=== PATIENT | male | born 1960 | race Caucasian/White ===

== ENCOUNTER → 2024-01-29 09:34 | Outpatient (CLI) | payer OTHER, SELFPAY ==
--- NOTE | 2024-01-29 09:37 | DI.RAD.S_ITS ---
PROCEDURE: Chest Fluoroscopy Evaluation COMPARISON: None. INDICATIONS: DISORDER OF DIAPHRAGM FINDINGS: Diaphragm evaluated under fluoroscopy at regular reaming interval loss, inspiration, expiration, and sniff test. Left diaphragm a mid within normal limits. Right diaphragm did not move, during breathing exercise. IMPRESSION: Radiographic evidence for right hemidiaphragm paralysis. Dictated by: Reid Cho RR Interpreted: Madhu Mohan MD on 01/29/2024 at 11:56 Approved by: Madhu Mohan M.D. on 01/29/2024 at 17:27
== END ==
LOC: RAD 09:36
DX: J98.6 Disorders of diaphragm (principal)
CPT/HCPCS: 76000; 76001

== ENCOUNTER → 2024-05-04 | Outpatient (CLI) | payer OTHER, SELFPAY ==
--- NOTE | 2024-05-05 17:35 | DI.NM.S_ITS ---
DATE OF SERVICE: 05/05/2024 PROCEDURE: Exercise stress test. INDICATIONS: Paroxysmal AFib. CARDIAC STRESS: Patient underwent exercise stress test under the supervision of an attending staff using standard Clifford protocol. He walked on Clifford protocol for 6 minutes and 43 seconds, achieved maximum heart rate 152, which was 97% of target heart rate. Resting blood pressure 130/95 and peak blood pressure 200/100 mmHg. Baseline rhythm sinus. During the stress, no convincing ischemic changes seen. Rare PVCs. 7 METs of workload. GLENYS positive 14%. No chest pain. Had some shortness of breath. CONCLUSION: Exercise stress test is negative for inducible ischemia. Mildly hypertensive response. Diminished exercise tolerance. No significant arrhythmias. No anginal symptoms. Normal recovery. Overall, low-risk exercise stress test. Misha Dowd - MILO/loida/KRYSTEN doc#: [id number]/job#: [id number] dd: 05/05/2024 17:04:00 dt: 05/05/2024 17:20:00 DICTATING /COPIES TO: Daria Thomas MD COPIES MNE: EVON;
== END ==
PROVIDERS: Referring Provider Internal Medicine; Visit Provider Internal Medicine
DX: I50.22 Chronic systolic (congestive) heart failure (principal); I48.0 Paroxysmal atrial fibrillation
CPT/HCPCS: 93017

== ENCOUNTER 2024-07-11 19:34 | Emergency (ER) | payer OTHER, SELFPAY ==
[2024-07-11] VITALS (11 sets, daily range): BP systolic 155–183; BP diastolic 88–108; PULSE 52–58; RESP 17–24; TEMP 36.3; O2SAT 93–96; BMI 39.4
--- NOTE | 2024-07-11 19:46 | DI.RAD.S_ITS ---
PROCEDURE: XR CHEST 1V INDICATIONS: chest pain TECHNIQUE: One view of the chest was acquired. COMPARISON: None. FINDINGS: Surgical changes and devices: None. Lungs and pleura: Lungs are clear. No pleural effusions or pneumothorax. Mediastinum: Mediastinal contours appear normal. Heart size is normal. Bones and chest wall: No suspicious bony lesions. Overlying soft tissues appear unremarkable. IMPRESSION: No acute pulmonary process. Dictated by: Angélica Perez M.D. on 07/11/2024 at 20:13 Approved by: Angélica Perez M.D. on 07/11/2024 at 20:13
--- NOTE | 2024-07-11 19:49 | EKG_ITS ---
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
[2024-07-11] MEDS: ASPIRIN 81 MG CHEW TAB 324 MG PO (19:54)
[2024-07-11 20:01] LABS: Add Manual Diff / Slide Review NO; Basophils Absolute Auto 0 /uL (0-100); Basophils Percent Auto 0.7 % (0-2); Eosinophils Absolute Auto 200 /uL (0-450); Eosinophils Percent Auto 2.8 % (2-4); Hematocrit 43.9 % (41-53); Lymphocytes Absolute Auto 1700 /uL (1100-4500); Lymphocytes Percent Auto 25.9 % (25-40); Mean Corpuscular HGB Conc 34.3 % (30-36); Mean Corpuscular Hemoglobin 30.7 PG (26-34); Mean Corpuscular Volume 89.6 fL (80-100); Monocytes Absolute Auto 700 /uL (0-900); Monocytes Percent Auto 10.6 % (3-14); Neutrophils Absolute Auto 4000 /uL (1500-7000); Platelet Count 175 X10^3/uL (150-400); White Blood Cell Count 6.6 X10^3/uL (4.5-11.0)
[2024-07-11 20:07] LABS: Prothrombin Time 11.2 SECONDS (9.4-12.5)
[2024-07-11 20:09] LABS: Alanine Aminotransferase 33 IU/L (<50); Albumin Globulin Ratio 1.8 (1.0-2.8); Alkaline Phosphatase 75 U/L (38-126); Aspartate Aminotransferase 36 IU/L (17-59); BUN Creatinine Ratio 15.7 (6-22); Bilirubin Total 0.7 mg/dL (0.2-1.3); Blood Urea Nitrogen 18 mg/dL (9-20); Calcium 9.6 mg/dL (8.4-10.2); Carbon Dioxide 29 mmol/L (22-32); Chloride 102 mmol/L (98-107); Creatine Kinase 185 U/L (55-170); Estimated Glomerular Filt Rate > 60 mL/min (>60); Globulin 2.8 g/dL (1.7-4.1); Glucose 101 mg/dL (80-110); HEMOLYSIS < 15 (0-50); Lipase 197 U/L (23-300); PTT Partial Thromboplastin Tim 39 SECONDS (25.1-36.5); Potassium 4.1 mmol/L (3.4-5.1); Sodium 139 mmol/L (137-145); Total Protein 7.8 g/dL (6.3-8.2)
[2024-07-11 20:21] LABS: NT-proBNP (BNP-Adult 18+) 46 pg/mL (<125); Troponin I < 0.012 ng/mL (0.01-0.034)
--- NOTE | 2024-07-11 22:16 | EKG_ITS ---
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
[2024-07-11 22:28] LABS: Troponin I < 0.012 ng/mL (0.01-0.034)
--- NOTE | 2024-07-11 22:46 | ED.CHESTPAIN ---
HPI - Chest Pain General Chief Complaint: Chest Pain Stated Complaint: left side chest px Time Seen by Provider: 07/11/24 22:46 Source: patient, RN notes reviewed and old records reviewed Mode of arrival: Ambulatory Limitations: no limitations History of Present Illness HPI narrative: 64-year-old male history of systolic heart failure and atrial fibrillation, hypertension, dyslipidemia on Eliquis who presents with complaint of left-sided chest discomfort he states it has been going on since November 25. He has had episodes of dizziness and feeling short of breath. He has been following with cardiology has been told he has systolic heart failure and atrial fibrillation. Sounds like he had a cardioversion with Cardiology in his supposed to have an ablation in 4 days on 07/15/2024. Patient states today he felt weird he felt like his heart rate was low he notes that he typically run 70s to 80s. He has not had any syncope he has felt a little lightheaded, he states he has had some chest pain on the left side but he states this has been on and off in the past. He states it has not really worse with exertion nothing seems to make it better. He relates it to in his heart rate is low. He was not been diaphoretic. No fevers or chills. States his hand and feed has been felt more swollen in the mornings for the past several days. He denies any nausea or vomiting. Denies any issues with bowel movements. States he urinates frequently but relates that to taking furosemide. He is on Eliquis, rosuvastatin, losartan, carvedilol, potassium and Lasix. He notes his carvedilol was increased from 6.25 mg b.i.d. to 12.5 mg b.i.d. about 2 weeks ago because his blood pressure has been rising like crazy in the last 2 weeks. Patient states he was never had any other cardiac interventions other than cardioversion. He has a prior colectomy for diverticulitis. Does note had other family members who have had atherosclerosis and had angioplasty. 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 Related Data Home Medications Medication Instructions Recorded Confirmed apixaban 5 mg tablet (Eliquis) 5 mg PO BID 07/11/24 07/11/24 carvedilol 12.5 mg tablet 12.5 mg PO BID 07/11/24 07/11/24 furosemide 40 mg tablet 40 mg PO DAILY 07/11/24 07/11/24 losartan 50 mg tablet 100 mg PO DAILY 07/11/24 07/11/24 meclizine 25 mg tablet PO PRN Back Pain 07/11/24 nitroglycerin 0.4 mg sublingual 0.4 mg sublingual Q5-15M PRN Chest 07/11/24 07/11/24 tablet Pain potassium chloride 10 mEq 10 meq PO DAILY 07/11/24 07/11/24 tablet,extended release rosuvastatin 20 mg tablet 20 mg PO DAILY 07/11/24 07/11/24 Allergies Allergy/AdvReac Type Severity Reaction Status Date / Time No Known Drug Allergies Allergy Verified 07/11/24 19:37 Review of Systems Review of Systems ROS Unobtainable: All systems reviewed & are unremarkable except as noted in HPI and below Patient History Social History Smoking Status: Former smoker Smoking Status: Former smoker tobacco type: cigarettes Exam Narrative Exam Narrative: GENERAL: Alert and oriented x three, male in mild distress HEENT: Head normocephalic, atraumatic, EOMI, pupils reactive, face symmetric, moist mucous membranes NECK: Supple, full range of motion CARDIOVASCULAR: Regular rate and rhythm without murmurs, rubs or gallops. No JVD. No edema bilateral upper or lower extremities. RESPIRATORY: Breath sounds equal bilaterally, no wheezes rales or rhonchi. ABDOMEN: Soft, nontender. Normoactive bowel sounds all 4 quadrants. No guarding or rebound, rigidity, no mass : No CVA tenderness EXTREMITIES: Normal range of motion, no clubbing or edema. Neurovascularly intact NEUROLOGICAL: Cranial nerves II through XII grossly intact. Moving all extremities SKIN: Warm, dry, no petechiae, no rashes or lesions. Initial Vital Signs Initial Vital Signs: Vital Signs Temperature 97.3 F L 07/11/24 19:38 Pulse Rate 55 L 07/11/24 19:38 Respiratory Rate 18 07/11/24 19:38 Blood Pressure 183/108 H 07/11/24 19:38 Pulse Oximetry 96 07/11/24 19:38 Oxygen Delivery Method Room Air 07/11/24 19:38 Course Orders Ordered: ED Orders 07/11/24 19:46 XR chest 1V Stat EKG-12 Lead Stat 07/11/24 19:52 Complete Blood Count AUTO DIFF Stat Comprehensive Metabolic Panel Stat Lipase Stat Magnesium Stat NT-proBNP (BNP-Adult 18+) Stat PTT Partial Thromboplastin Jonnathan Stat Prothrombin Time INR Stat Troponin & CK Cardiac Panel Stat 07/11/24 21:55 Trop I [Troponin I] Stat Discontinued Medications Aspirin (Aspirin 81 Mg Chew Tab) 324 mg PO NOW ONE Stop: 07/11/24 19:47 Last Admin: 07/11/24 19:54 Dose: 324 mg Documented By: [facility] Vital Signs Vital signs: Vital Signs - 8 hr 07/11/24 21:00 07/11/24 21:00 07/11/24 21:30 Pulse Rate 57 L 58 L Respiratory Rate 17 18 Blood Pressure 156/95 H Pulse Oximetry 96 94 07/11/24 21:30 07/11/24 22:00 07/11/24 22:00 Pulse Rate 52 L Respiratory Rate 18 Blood Pressure 155/94 H 177/93 H Pulse Oximetry 93 07/11/24 22:30 07/11/24 22:30 07/11/24 23:00 Pulse Rate 55 L 56 L Respiratory Rate 17 18 Blood Pressure 172/91 H Pulse Oximetry 95 96 07/11/24 23:00 Pulse Rate Respiratory Rate Blood Pressure 179/101 H Pulse Oximetry MDM - Chest Pain Lab Data 07/11/24 19:52 07/11/24 19:52 Labs: Lab Results 07/11/24 07/11/24 Range/Units 19:52 21:55 WBC 6.6 (4.5-11.0) X10^3/uL RBC 4.90 (4.5-5.9) X10^6/uL Hgb 15.0 (13.5-17.5) g/dL Hct 43.9 (41-53) % MCV 89.6 (80-100) fL MCH 30.7 (26-34) PG MCHC 34.3 (30-36) % RDW 13.0 (11.6-14.8) % Plt Count 175 (150-400) X10^3/uL Neut % (Auto) 60.0 (50-75) % Lymph % (Auto) 25.9 (25-40) % [place] % (Auto) 10.6 (3-14) % Eos % (Auto) 2.8 (2-4) % Baso % (Auto) 0.7 (0-2) % Neut # (Auto) 4000 (3269-5876) /uL Lymph # (Auto) 1700 (1316-6561) /uL [place] # (Auto) 700 (0-900) /uL Eos # (Auto) 200 (0-450) /uL Baso # (Auto) 0 (0-100) /uL PT 11.2 (9.4-12.5) SECONDS INR 1.0 (0.9-1.3) APTT 39 H (25.1-36.5) SECONDS Sodium 139 (137-145) mmol/L Potassium 4.1 (3.4-5.1) mmol/L Chloride 102 (98-107) mmol/L Carbon Dioxide 29 (22-32) mmol/L BUN 18 (9-20) mg/dL Creatinine 1.15 (0.66-1.25) mg/dL Estimated GFR > 60 (>60) mL/min BUN/Creatinine Ratio 15.7 (6-22) Glucose 101 (80-110) mg/dL Calcium 9.6 (8.4-10.2) mg/dL Magnesium 2.0 (1.6-2.3) mg/dL Total Bilirubin 0.7 (0.2-1.3) mg/dL AST 36 (17-59) IU/L ALT 33 (<50) IU/L Alkaline Phosphatase 75 (38-126) U/L Total Creatine Kinase 185 H (55-170) U/L Troponin I < 0.012 < 0.012 (0.01-0.034) ng/mL NT-Pro-B Natriuret Pep 46 (<125) pg/mL Total Protein 7.8 (6.3-8.2) g/dL Albumin 5.0 (3.5-5.0) g/dL Globulin 2.8 (1.7-4.1) g/dL Albumin/Globulin Ratio 1.8 (1.0-2.8) Lipase 197 (23-300) U/L ECG Data Attestation: I personally reviewed and interpreted this ECG as follows: Prior ECG tracings: available for review Interpretation: Junctional rhythm rate of 56, QRS of 108 QTC of 430 nonspecific change. Patient was prior from 12/21/2021 has some nonspecific change. EKG number shows sinus bradycardia rate of 54, [place] 168 QRS of 114 QTC of 443 nonspecific change. MDM Narrative Medical decision making narrative: Labs show normal white count, hemoglobin and platelets, INR is 1, electrolytes are appropriate potassium 4.1 Mag is 2, creatinine 1.15 no priors for comparison glucose is 101 total CK is 185, troponins less than 0.012 with a repeat troponin less than 0.012 and a lipase of 197. BNP of 46. Otherwise normal LFTs. Chest x-ray shows no acute pulmonary process. EKG shows regular junctional rhythm possibly sinus and repeat shows sinus bradycardia with nonspecific change. Patient had exercise stress test on 05/05/2024 for paroxysmal atrial fibrillation patient had no convincing ischemic changes with rare PVCs had some shortness of breath was negative for inducible ischemia, mildly hypertensive response diminished exercise tolerance no significant arrhythmias no anginal symptoms normal recovery overall low risk exercise test. 64-year-old male known history of heart failure, atrial fibrillation with plan for ablation on 07/15/2024. Patient symptoms since November has been following regularly with Cardiology has felt a little dizzy, short of breath and chest pain states this has been on and off over the last several months he relates his symptoms today to his heart rate being low and notes he was typically 70s to 80s to his heart rate and notes that his carvedilol was recently increased. He had cardiac workup with no acute EKG changes, 2- troponins no other clear cause found for his symptoms. He notes no other high-risk factors such as long distance travel, embolic, ect. He notes he was felt a little bit more dizzy he was not been hypotensive but has been a little bradycardic he notes his carvedilol was increased recently discussed he feels comfortable with turn home has follow up in 4 days for ablation discussed could decrease his carvedilol if he was feeling very lightheaded with a heart rate in the 50s he has monitors to check his heart rate as well as blood pressure at so encouraged him to do this strict return precautions. Patient states he would like to return home. Discharge Plan Departure Patient Disposition: Home Clinical Impression: Chest pain Instructions: DI for Chest Pain Activity Restrictions/Additional Instructions: Follow-up with your commutator assembler on the I hope you are ablation goes well. Continue your home medications as prescribed if you are noting your heart rate is quite low and your feeling lightheaded you can decrease your carvedilol back to 6.25 mg b.i.d. but please call and let your commutator assembler know that you are making this change. Please return if you have new or worsening symptoms, new chest pain, increasing shortness of breath, increasing swelling, lightheadedness or passing out, persistent vomiting, diaphoresis or sweatiness or other new or concerning changes. Prescriptions: No Action carvedilol 12.5 mg tablet 12.5 mg PO BID rosuvastatin 20 mg tablet 20 mg PO DAILY furosemide 40 mg tablet 40 mg PO DAILY Eliquis 5 mg tablet 5 mg PO BID potassium chloride 10 mEq tablet extended release 10 meq PO DAILY losartan 50 mg tablet 100 mg PO DAILY nitroglycerin 0.4 mg Tablet, Sublingual 0.4 mg SUBLINGUAL Q5-15M PRN (Reason: Chest Pain) Rx Instructions: do not exceed 3 doses per episode meclizine 25 mg Tablet PO PRN (Reason: Back Pain) Referrals: Angela White ARNP [Primary Care Provider] - Amor Mohan MD [Physician] - Stand Alone Forms: Patient Portal/API/Survey
== END 2024-07-11 23:28 | disposition home or self-care (01) ==
PROVIDERS: Emergency Provider Emergency Medicine
DX: R07.9 Chest pain, unspecified (principal); I48.0 Paroxysmal atrial fibrillation; I50.9 Heart failure, unspecified; I11.0 Hypertensive heart disease with heart failure; Z79.01 Long term (current) use of anticoagulants; Z87.891 Personal history of nicotine dependence
CPT/HCPCS: 36415; 71045; 80053; 82550; 83690; 83735; 83880; 84484; 85025; 85610; 85730; 93005; 93010; 99284

== ENCOUNTER 2025-01-19 10:05 | Emergency (ER) | payer OTHER, SELFPAY ==
[2025-01-19] VITALS (15 sets, daily range): BP systolic 139–209; BP diastolic 85–121; PULSE 56–70; RESP 14–22; TEMP 36.8; O2SAT 92–96; BMI 38.9
--- NOTE | 2025-01-19 10:16 | DI.RAD.S_ITS ---
PROCEDURE: XR CHEST 1V INDICATIONS: Chest Pain TECHNIQUE: One view of the chest was acquired. COMPARISON: [facility], CR, XR CHEST 2 VIEWS, 08/21/2024, 16:35. [facility], CR, XR CHEST 1V, 07/11/2024, 19:49. FINDINGS: Surgical changes and devices: None. Lungs and pleura: Chronic elevation of the right hemidiaphragm. No acute consolidation. No pleural effusions or pneumothorax. Mediastinum: Mediastinal contours appear normal. Heart size is normal. Bones and chest wall: No suspicious bony lesions. Overlying soft tissues appear unremarkable. IMPRESSION: No acute cardiopulmonary abnormality is seen. Approved by: Ruel Jiménez M.D. on 01/19/2025 at 10:26
--- NOTE | 2025-01-19 10:18 | EKG_ITS ---
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
[2025-01-19 10:41] LABS: Add Manual Diff / Slide Review NO; Hematocrit 42.3 % (41-53); Hemoglobin 14.6 g/dL (13.5-17.5); Lymphocytes Absolute Auto 1300 /uL (1100-4500); Mean Corpuscular HGB Conc 34.6 % (30-36); Mean Corpuscular Hemoglobin 30.6 PG (26-34); Mean Corpuscular Volume 88.4 fL (80-100); Platelet Count 179 X10^3/uL (150-400)
[2025-01-19 10:46] LABS: INR 1.0 (0.9-1.3); Prothrombin Time 11.0 SECONDS (9.4-12.5)
[2025-01-19 10:48] LABS: PTT Partial Thromboplastin Tim 32 SECONDS (25.1-36.5)
--- NOTE | 2025-01-19 10:48 | DI.CT.S_ITS ---
PROCEDURE: CT HEAD/BRAIN WO CON INDICATIONS: Dizzy/headache TECHNIQUE: Noncontrast 4.5 mm thick angled axial sections acquired from the foramen magnum to the vertex, with coronal and sagittal reformats. For radiation dose reduction, the following was used: automated exposure control, adjustment of mA and/or kV according to patient size. COMPARISON: None. FINDINGS: Image quality: Diagnostic. CSF spaces: Basal cisterns are patent. No extra-axial fluid collections. Ventricles are normal in size and shape. Brain: No midline shift. No intracranial mass effect or hemorrhage. Carlson- white matter interface is normal. Mild diffuse cerebral cortical volume loss and slight, symmetric periventricular white matter hypodensity. Skull and face: Calvarium and visualized facial bones are intact, without suspicious lesions. Sinuses: Visualized sinuses and mastoids are clear. IMPRESSION: No CT evidence of acute intracranial process. Dictated by: Etta Downs M.D. on 01/19/2025 at 11:28 Approved by: Etta Downs M.D. on 01/19/2025 at 11:29
[2025-01-19 10:50] LABS: Alanine Aminotransferase 22 IU/L (<50); Albumin 4.8 g/dL (3.5-5.0); Albumin Globulin Ratio 1.8 (1.0-2.8); Alkaline Phosphatase 68 U/L (38-126); Blood Urea Nitrogen 15 mg/dL (9-20); Calcium 9.1 mg/dL (8.4-10.2); Carbon Dioxide 26 mmol/L (22-32); Chloride 103 mmol/L (98-107); Creatine Kinase 249 U/L (55-170); Estimated Glomerular Filt Rate > 60 mL/min (>60); Globulin 2.7 g/dL (1.7-4.1); Glucose 105 mg/dL (70-99); HEMOLYSIS < 15 (0-50); Lipase 131 U/L (23-300); Magnesium 2.1 mg/dL (1.6-2.3); Potassium 4.1 mmol/L (3.4-5.1); Sodium 139 mmol/L (137-145); Total Protein 7.5 g/dL (6.3-8.2)
--- NOTE | 2025-01-19 10:50 | ED.DIZZY ---
HPI - Dizziness General Chief Complaint: Dizziness Stated Complaint: Dizzy , cardiac issues , high blood pressure Time Seen by Provider: 01/19/25 10:29 Source: patient Mode of arrival: Wheelchair History of Present Illness HPI Narrative: Patient here for dizziness. Ongoing since November 2023 but worsening in the past couple of weeks. Patient does have history of hypertension hyperlipidemia atrial fibrillation congestive heart failure. He is on Eliquis carvedilol. Patient was then pulmonary rehab this morning and felt dizzy and blood pressure elevated and brought over here. Patient sees [facility] cardiology services. Denies any chest pain. Blood pressure noted. He has been compliant with his medications. Patient is seen here June 2024 for the same complaint and discharged home. Related Data Home Medications ?Medication ?Instructions ?Recorded ?Confirmed apixaban 5 mg tablet (Eliquis) 5 mg PO BID 07/11/24 12/22/24 carvedilol 12.5 mg tablet 12.5 mg PO BID 07/11/24 12/22/24 nitroglycerin 0.4 mg sublingual 0.4 mg sublingual Q5-15M PRN Chest 07/11/24 12/22/24 tablet Pain rosuvastatin 20 mg tablet 20 mg PO DAILY 07/11/24 12/22/24 albuterol sulfate 90 mcg/actuation 2 puff inhalation Q4-6H PRN 11/18/24 12/22/24 aerosol inhaler escitalopram oxalate 10 mg tablet 10 mg PO DAILY 11/18/24 12/22/24 sacubitril 97 mg-valsartan 103 mg 1 tab PO BID 11/18/24 12/22/24 tablet spironolactone 25 mg tablet 25 mg PO DAILY 11/18/24 12/22/24 Previous Rx's ?Medication ?Instructions ?Recorded fluticasone fur. 200 mcg-umeclid 1 inh inhalation DAILY #60 ea 12/22/24 62.5 mcg-vilant 25 mcg inhalat.powder (Trelegy Ellipta) Allergies Allergy/AdvReac Type Severity Reaction Status Date / Time amlodipine AdvReac Intermediate Swelling Verified 01/19/25 10:16 Review of Systems Review of Systems Narrative: GENERAL: Negative chills, fatigue, malaise, fever, sweats. HEENT: Negative sinus pain, ear pain, sore throat RESPIRATORY: Negative dyspnea, cough CARDIOVASCULAR: Negative chest pain, palpitations GASTROINTESTINAL: Negative vomiting, nausea, abdominal pain : Negative dysuria, frequency, hematuria MUSCULOSKELETAL: Negative muscle or bony pain SKIN: Negative rash, skin lesions NEUROLOGIC: Negative weakness, numbness, positive dizziness ROS Unobtainable: All systems reviewed & are unremarkable except as noted in HPI and below Patient History Social History Smoking Status: Unknown if ever smoked Smoking Status: Unknown if ever smoked tobacco type: cigarettes Exam Narrative Exam Narrative: GENERAL: in no distress, not toxic not dyspneic HEAD: Normocephalic. EYES: Pupils equal round ENT: Mucous membranes moist. NECK: Trachea midline. CARDIOVASCULAR: Regular rate and rhythm RESPIRATORY: Clear to auscultation. Breath sounds equal bilaterally. No wheezes, rales, or rhonchi. GASTROINTESTINAL: Abdomen soft, non-tender EXTREMITIES: No gross deformities. BACK: No flank tenderness. NEURO: AOx4. Clear speech, fast exam is negative. Currently not dizzy. 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 Elevate each leg without drift. Negative pronator drift. Fast exam is negative. SKIN: Warm and dry PSYCH: Not anxious, is cooperative Initial Vital Signs Initial Vital Signs: Vital Signs Temperature 98.2 F 01/19/25 10:06 Pulse Rate 70 01/19/25 10:06 Respiratory Rate 15 01/19/25 10:06 Blood Pressure 207/121 H 01/19/25 10:06 Pulse Oximetry 94 01/19/25 10:06 Oxygen Delivery Method Room Air 01/19/25 10:06 Course Orders Ordered: ED Orders 01/19/25 10:48 CT head/brain wo con Stat Discontinued Medications Labetalol HCl (Labetalol 20 Mg/4 Ml Syringe) 10 mg IV NOW ONE Stop: 01/19/25 12:19 Last Admin: 01/19/25 12:51 Dose: 10 mg Documented By: JHONNY Vital Signs Vital signs: Vital Signs - 8 hr 01/19/25 12:00 01/19/25 12:01 01/19/25 12:01 Pulse Rate 66 64 Respiratory Rate 20 20 Blood Pressure 182/113 H Pulse Oximetry 92 96 Oxygen Delivery Method 01/19/25 12:30 01/19/25 12:31 01/19/25 12:31 Pulse Rate 58 L 58 L Respiratory Rate 20 17 Blood Pressure 209/118 H Pulse Oximetry 96 95 Oxygen Delivery Method 01/19/25 12:51 01/19/25 12:52 01/19/25 12:52 Pulse Rate 58 L 57 L Respiratory Rate 15 Blood Pressure 195/112 H 195/112 H Pulse Oximetry 94 Oxygen Delivery Method 01/19/25 12:55 01/19/25 12:55 01/19/25 13:00 Pulse Rate 59 L Respiratory Rate 14 Blood Pressure 139/85 144/90 H Pulse Oximetry 96 Oxygen Delivery Method 01/19/25 13:00 01/19/25 13:15 01/19/25 13:15 Pulse Rate 56 L 57 L Respiratory Rate 22 21 Blood Pressure 145/92 H Pulse Oximetry 94 96 Oxygen Delivery Method Room Air 01/19/25 13:26 Pulse Rate 58 L Respiratory Rate Blood Pressure 145/92 H Pulse Oximetry Oxygen Delivery Method MDM - Dizziness Lab Data 01/19/25 10:30 01/19/25 10:30 Labs: Lab Results 01/19/25 Range/Units 10:30 WBC 5.8 (4.5-11.0) X10^3/uL RBC 4.78 (4.5-5.9) X10^6/uL Hgb 14.6 (13.5-17.5) g/dL Hct 42.3 (41-53) % MCV 88.4 (80-100) fL MCH 30.6 (26-34) PG MCHC 34.6 (30-36) % RDW 13.1 (11.6-14.8) % Plt Count 179 (150-400) X10^3/uL Neut % (Auto) 62.0 (50-75) % Lymph % (Auto) 23.0 L (25-40) % Ferry % (Auto) 11.9 (3-14) % Eos % (Auto) 2.6 (2-4) % Baso % (Auto) 0.5 (0-2) % Neut # (Auto) 3600 (8900-7034) /uL Lymph # (Auto) 1300 (0830-5109) /uL Ferry # (Auto) 700 (0-900) /uL Eos # (Auto) 200 (0-450) /uL Baso # (Auto) 0 (0-100) /uL PT 11.0 (9.4-12.5) SECONDS INR 1.0 (0.9-1.3) APTT 32 (25.1-36.5) SECONDS Sodium 139 (137-145) mmol/L Potassium 4.1 (3.4-5.1) mmol/L Chloride 103 (98-107) mmol/L Carbon Dioxide 26 (22-32) mmol/L BUN 15 (9-20) mg/dL Creatinine 1.01 (0.66-1.25) mg/dL Estimated GFR > 60 (>60) mL/min BUN/Creatinine Ratio 14.9 (6-22) Glucose 105 H (70-99) mg/dL Calcium 9.1 (8.4-10.2) mg/dL Magnesium 2.1 (1.6-2.3) mg/dL Total Bilirubin 0.6 (0.2-1.3) mg/dL AST 32 (17-59) IU/L ALT 22 (<50) IU/L Alkaline Phosphatase 68 (38-126) U/L Total Creatine Kinase 249 H (55-170) U/L Troponin I < 0.012 (0.01-0.034) ng/mL NT-Pro-B Natriuret Pep 30 (<125) pg/mL Total Protein 7.5 (6.3-8.2) g/dL Albumin 4.8 (3.5-5.0) g/dL Globulin 2.7 (1.7-4.1) g/dL Albumin/Globulin Ratio 1.8 (1.0-2.8) Lipase 131 (23-300) U/L Imaging Data Chest x-ray: Radiologist's Impression: [address] [address] XRay Report Signed Patient: Misha Dowd MR#: [id number] : 1960 Acct:[id number] Age/Sex: 64 / M Date of Service: 01/19/25 Loc: ED Accession Number: [id number] Procedure: XR chest 1V Ordering Provider: Dinh Sheldon MD PROCEDURE: XR CHEST 1V INDICATIONS: Chest Pain TECHNIQUE: One view of the chest was acquired. COMPARISON: [facility], , XR CHEST 2 VIEWS, 08/21/2024, 16:35. [facility], CR, XR CHEST 1V, 07/11/2024, 19:49. FINDINGS: Surgical changes and devices: None. Lungs and pleura: Chronic elevation of the right hemidiaphragm. No acute consolidation. No pleural effusions or pneumothorax. Mediastinum: Mediastinal contours appear normal. Heart size is normal. Bones and chest wall: No suspicious bony lesions. Overlying soft tissues appear unremarkable. IMPRESSION: No acute cardiopulmonary abnormality is seen. Approved by: Ruel Jiménez M.D. on 01/19/2025 at 10:26 CT scan - head: Radiologist's Impression: [place] [address] CT Scan Report Signed Patient: Misha Dowd MR#: [id number] : 1960 Acct:[id number] Age/Sex: 64 / M Date of Service: 01/19/25 Loc: ED Accession Number: [id number] Procedure: CT head/brain wo con Ordering Provider: Dinh Sheldno MD PROCEDURE: CT HEAD/BRAIN WO CON INDICATIONS: Dizzy/headache TECHNIQUE: Noncontrast 4.5 mm thick angled axial sections acquired from the foramen magnum to the vertex, with coronal and sagittal reformats. For radiation dose reduction, the following was used: automated exposure control, adjustment of mA and/or kV according to patient size. COMPARISON: None. FINDINGS: Image quality: Diagnostic. CSF spaces: Basal cisterns are patent. No extra-axial fluid collections. Ventricles are normal in size and shape. Brain: No midline shift. No intracranial mass effect or hemorrhage. Carlson-white matter interface is normal. Mild diffuse cerebral cortical volume loss and slight, symmetric periventricular white matter hypodensity. Skull and face: Calvarium and visualized facial bones are intact, without suspicious lesions. Sinuses: Visualized sinuses and mastoids are clear. IMPRESSION: No CT evidence of acute intracranial process. Dictated by: Etta Downs M.D. on 01/19/2025 at 11:28 Approved by: Etta Downs M.D. on 01/19/2025 at 11:29 [facility] Narrative Medical decision making narrative: Patient here for dizziness. Ongoing since November 2023 but worsening in the past couple of weeks. Patient does have history of hypertension hyperlipidemia atrial fibrillation congestive heart failure. He is on Eliquis carvedilol. Patient was then pulmonary rehab this morning and felt dizzy and blood pressure elevated and brought over here. Patient sees [facility] cardiology services. Denies any chest pain. Blood pressure noted. He has been compliant with his medications. Patient is seen here June 2024 for the same complaint and discharged home. MDM After history and exam, CT head EKG CBC CMP troponin, Cardiology consult for blood pressure medication, possible admission. Differential considered: Includes but not limited to hypertensive urgency/stroke/TIA Medical records reviewed: July 11, 2024 ER visit notes here. Lab Test results independently reviewed as above. Pertinent findings: Hemoglobin 14.6 INR 1.0 sodium 139 potassium 4.1 GFR greater than 60 glucose 105, troponin less than 0.012 Independently reviewed EKG normal sinus rhythm normal EKG rate 63 Imaging studies independently reviewed: Chest x-ray no acute finding CT head no acute finding Consultations: 11:00 a.m.. Spoke with Cardiology Dr. Canseco, who will follow in consult. Recommends labetalol at this time for blood pressure control for hypertensive urgency. 1:[address] Love that patient is now leaving against medical advice Re-evaluations: Updated patient results. He does agree understand need for admission for blood pressure control. 1:26 p.m.. Blood pressure 145/92. Patient feeling much better and now has decided to leave against medical advice. I implored him to stay however he decided to leave against medical advice. Risk include but not limited to heart attack stroke kidney failure reviewed with him. He is awake alert oriented x4. I did review with him labetalol may be only temporary effect for his blood pressure. Discussion: Appropriate for admission. Patient will need blood pressure control. will need monitoring for dizziness. Cardiology services was contacted. Hospitalist will admit. May need MRI of the brain during course of stay. Symptoms have been going on for weeks and MRI during admission is appropriate Addendum. Patient has decided to leave against medical advice Diagnosis: Hypertensive urgency Discharge Plan Departure Patient Disposition: Left Against Medical Advice Clinical Impression: Hypertensive urgency Instructions: Refusal of Consent to Treatment (Against Medical Advice) Activity Restrictions/Additional Instructions: Return immediately if be change your mind to be admitted Prescriptions: No Action carvedilol 12.5 mg tablet 12.5 mg PO BID rosuvastatin 20 mg tablet 20 mg PO DAILY Eliquis 5 mg tablet 5 mg PO BID nitroglycerin 0.4 mg Tablet, Sublingual 0.4 mg SUBLINGUAL Q5-15M PRN (Reason: Chest Pain) Rx Instructions: do not exceed 3 doses per episode spironolactone 25 mg tablet 25 mg PO DAILY albuterol sulfate 90 mcg/actuation HFA aerosol inhaler 2 puff inhalation Q4-6H PRN escitalopram oxalate 10 mg tablet 10 mg PO DAILY sacubitril-valsartan 97-103 mg tablet 1 tab PO BID Trelegy Ellipta 200-62.5-25 mcg blister with device 1 inh inhalation DAILY Qty: 60 1RF Rx Instructions: rinse mouth with water, gargle and spit after each use Referrals: [facility], [Primary Care Provider, Family Practice] Stand Alone Forms: Patient Portal/API, Against Med. Advice (Divehi)
[2025-01-19 11:01] LABS: NT-proBNP (BNP-Adult 18+) 30 pg/mL (<125); Troponin I < 0.012 ng/mL (0.01-0.034)
[2025-01-19] MEDS: LABETALOL 20 MG/4 ML SYRINGE 10 MG IV (12:51)
== END 2025-01-19 13:39 | disposition left against medical advice (07) ==
PROVIDERS: Emergency Provider Emergency Medicine; PCP Family Medicine
DX: I16.0 Hypertensive urgency (principal); R07.9 Chest pain, unspecified; I50.9 Heart failure, unspecified; Z79.01 Long term (current) use of anticoagulants
CPT/HCPCS: 36415; 70450; 71045; 80053; 82550; 83690; 83735; 83880; 84484; 85025; 85610; 85730; 93005; 96374; 99284